=== PATIENT | male | born 2000 | race Two or more races ===

== ENCOUNTER 2025-01-22 06:39 | Emergency (ER) | payer MEDICAID, SELFPAY ==
[2025-01-22 06:44] VITALS: BMI 33.6
[2025-01-22 06:54] VITALS: BP 127/84; PULSE 92; RESP 16; TEMP 36.7; O2SAT 98
--- NOTE | 2025-01-22 07:03 | EDNOTE_ITS ---
<Statement entered by Almaz Jimenez MD - 01/24/25 06:16> As co-signing physician, I was present and available for consult prn. I concur with the plan and care as documented by the midlevel provider. ED Headache RME/HPI General Chief Complaint: Headache Stated Complaint: HEADACHE Time Seen by Provider: 01/22/25 06:43 Source: patient Arrival date/time: 01/22/25 06:39 24-year-old male with no known medical history presents to the emergency room with a chief complaint of a headache and chest pain x 2 days Mode of arrival: ambulatory Limitations: no limitations Related Data Allergies Allergy/AdvReac Type Severity Reaction Status Date / Time NKA* Allergy Uncoded 06/14/15 16:47 Review of Systems Review of Systems Systems Reviewed: All systems reviewed, normal except as documented Constitutional Constitutional: Reports system reviewed and no additional complaints, except as documented, Denies fatigue, Denies fever(s), Reports headache(s) and Denies weakness Eyes Eyes: Reports system reviewed and no additional complaints, except as documented, Denies blurry vision and Denies change in vision ENT Ears, Nose, Mouth, and Throat: Reports system reviewed and no additional complaints, except as documented, Denies otalgia, Reports headache(s), Denies nasal congestion, Denies throat swelling and Denies vertigo Cardiovascular Cardiovascular: Reports system reviewed and no additional complaints, except as documented, Reports chest pain, Denies dyspnea and Denies dyspnea on exertion Respiratory Respiratory: Reports system reviewed and no additional complaints, except as documented, Denies chest congestion, Denies cough, Denies dyspnea, Denies dyspnea on exertion and Denies wheezing Gastrointestinal Gastrointestinal: Reports system reviewed and no additional complaints, except as documented, Denies abdominal pain, Denies cramping, Denies nausea and Denies vomiting Genitourinary Genitourinary: Reports system reviewed and no additional complaints, except as documented, Denies dysuria and Denies hematuria Musculoskeletal Musculoskeletal: Reports system reviewed and no additional complaints, except as documented and Denies back pain Integumentary/Breasts Skin/Breast: Reports system reviewed and no additional complaints, except as documented and Denies wounds Neurologic Neurologic: Reports system reviewed and no additional complaints, except as documented, Denies confusion, Reports headache(s), Denies lack of coordination, Denies vertigo and Denies weakness Psychiatric Psychiatric: Reports system reviewed and no additional complaints, except as documented, Denies anxiety, Denies confusion, Denies depression, Denies paranoia, Denies suicidal ideation and Denies tactile hallucinations Endocrine Endocrine: Reports system reviewed and no additional complaints, except as documented and Denies fatigue Hematologic/Lymphatic Hematologic/Lymphatic: Reports system reviewed and no additional complaints, except as documented and Denies lymphadenopathy Allergic/Immunologic Allergic/Immunologic: Reports system reviewed and no additional complaints, except as documented, Denies throat swelling, Denies urticaria and Denies wheezing Past Medical History Social History SMOKING STATUS: Never smoker ED Exam General Limitations: Present no limitations General appearance: Present alert and in no apparent distress Head Head exam: Present atraumatic Eye Eye exam: Present normal appearance, PERRL and EOMI ENT ENT exam: Present normal exam, normal oropharynx and mucous membranes moist Neck Neck exam: Present normal inspection, full ROM and trachea midline Chest Chest inspection: Present normal inspection and symmetric chest wall rise Respiratory Respiratory exam: Present normal lung sounds bilaterally; Absent respiratory distress, wheezes, stridor, accessory muscle use or prolonged expiratory phase Cardiovascular Cardiovascular exam: Present regular rate, normal rhythm and normal heart sounds; Absent bradycardia, tachycardia or irregular rhythm Abdominal Exam Abdominal exam: Present soft and normal bowel sounds Extremities Exam Extremities exam: Present normal inspection and full ROM Back Exam Back exam: Present normal inspection and full ROM Neurological Exam Neurological exam: Present alert, oriented X3 and CN II-XII intact Psychiatric Psychiatric exam: Present normal affect and normal mood Skin Skin exam: Present warm, dry, intact and normal color Course Quality Measures none Orders Category Date Time Status EKG (ED ONLY) *Do not use* NOW Care 01/22/25 07:03 Completed EKG (ED Only) Stat Exams 01/22/25 07:03 Draft B-Type Natriuretic Peptide Stat Lab 01/22/25 07:20 Completed CBC Stat Lab 01/22/25 07:20 Completed Comprehensive Metabolic Panel Stat Lab 01/22/25 07:20 Completed Troponin I Stat Lab 01/22/25 07:20 Completed Vital Signs Vital signs: Vital Signs Temperature 98.0 F 01/22/25 06:54 Pulse Rate 92 01/22/25 06:54 Respiratory Rate 16 01/22/25 06:54 Blood Pressure 127/84 01/22/25 06:54 Pulse Oximetry (%) 98 01/22/25 06:54 Oxygen Delivery Method Room Air 01/22/25 06:54 O2 saturation 98% within normal limits Procedures -ED EKG Interpretation #1: Date of EK01/22/25 Rate: 77 Interpretation: Reviewed by me EKG Impression: Normal sinus rhythm Headache MDM Narrative MDM Narrative:: 24-year-old male with no known medical history presents to the emergency room with a chief complaint of a headache and chest pain x 2 days. Patient states his headache began yesterday afternoon but today it is significantly better. Patient also states yesterday his blood pressure was really elevated. Patient came asking for referral to a otolaryngology physician for his blood pressure. Patient also states he was having chest pain yesterday afternoon, it is still hurting him today but not as bad as yesterday. Patient is hemodynamically stable and in no apparent distress. Physical examination shows clear bilateral lung sounds. Patient has a strong regular rhythm S1 and S2 noted no murmurs. CBC CMP were negative for any acute findings. Troponin was negative. EKG was within normal limits with no ST deviation. Patient was discharged and educated to follow-up with primary care provider in the next 24 to 48 hours and return to the emergency room for any evidence of worsening signs or symptoms Patient data External records reviewed:: [facility] Clinical information provided by:: parent Social determinants that could affect healthcare access:: none Patient has the following chronic illnesses:: No chronic illness How is presenting disease/condition affected by chronic disease/condition?: no chronic disease Evaluation data The following diagnostics were reviewed and interpreted by me:: lab results and radiology exam(s) Lab and/or radiology exams considered but not ordered:: Labs radiology exams considered and ordered Interpretation Summary: N/A Medications / Prescriptions Medications or Prescriptions considered but not ordered:: No medication given Medication administrations:: No medication given Consultations Consultation(s) initiated? (list below): No Diagnosis Differential diagnosis headache: headache and other (Costochondritis/STEMI/chest pain) Most likely diagnosis given after review of the tests above:: Chest pain Admission Indicated Admission indicated?: not indicated Admission Request Was there a request for admission?: No Disposition Plan Disposition Plan: Discharge Discharge Attestation Discharge Attestation: The patient and all family members were given an opportunity to ask questions and understood the discharge instructions. Discharge instructions specifically effects, indications for sooner follow up or return to the emergency department, and the expected course of current diagnosis. Patient condition: Stable Discharge Plan Plan Patient Disposition: HOME (Self Care) Discharge Disposition comment: Stable Problem List Clinical Impression: Chest pain Patient/Caregiver Discharge Instructions Education Materials: ED Chest Pain, Noncardiac Additional Instructions: Please follow-up with your primary care provider in the next 24 to 48 hours Your cardiac examination was negative for any acute findings. For any evidence of worsening signs or symptoms return to the emergency room immediately Print Language: Japanese Stand Alone Forms: Kristi Award Info., Work/School Release, Patient Portal Info Letter PA/REMOTE CONTROL ASSEMBLER Supervising Physician PA/REMOTE CONTROL ASSEMBLER Supervising Physician: Dr. JIMENEZ
--- NOTE | 2025-01-22 07:03 | EKG_ITS ---
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
[2025-01-22 07:34] LABS: Basophils % (Auto) 0 % (0-2.5); Eosinophils # (Auto) 0.1 Thou/mm3 (0.0-0.5); Eosinophils % (Auto) 1 % (0-10); Hematocrit 39.3 % (41.0-53.0); Hemoglobin 13.6 g/dL (13.5-16.0); Immature Granulocytes % (Auto) 0 % (0-0); Immature Granulocytes Auto 0.01 Thou/mm3 (0.00-0.00); Lymphocytes # (Auto) 1.8 Thou/mm3 (1.0-4.8); Lymphocytes % (Auto) 23 % (10-50); Mean Corpuscular HGB Conc 34.6 g/dl (31.0-37.0); Mean Corpuscular Hemoglobin 30.4 pg (25.0-35.0); Mean Corpuscular Volume 88 fL (80-100); Monocytes # (Auto) 0.6 Thou/mm3 (0.0-0.8); Monocytes % (Auto) 8 % (0-12); Neutrophils # (Auto) 5.4 Thou/mm3 (1.8-7.7); Neutrophils % (Auto) 69 % (37-80); Nucleated Red Blood Cell % 0 /100 WBC (0); Platelet Count 245 Thou/mm3 (140-440); RDW Standard Deviation 40.8 fL (35.1-43.9); Red Blood Count 4.47 Miln/mm3 (4.50-5.90); White Blood Count 7.9 Thou/mm3 (3.8-10.6)
[2025-01-22 07:47] LABS: Alanine Aminotransferase 15 U/L (10-49); Albumin, Serum 4.7 gm/dL (3.5-5.0); Alkaline Phosphatase 58 U/L (46-116); Anion Gap 6 (7-16); Aspartate Amino Transferase 31 U/L (0-34); B-Type Natriuretic Peptide < 20 pg/mL (0-100); BUN/Creatinine Ratio 13 Ratio (12-20); Bilirubin,Total 0.8 mg/dL (0.3-1.2); Blood Urea Nitrogen 13 mg/dL (9-23); Calcium 8.9 mg/dL (8.3-10.6); Calcium (Corrected) 8.9 mg/dL (8.5-10.1); Carbon Dioxide 26.1 mMol/L (20.0-31.0); Chloride 108 mMol/L (98-107); Globulin 2.4 gm/dL (2.3-3.5); Glucose 95 mg/dL (74-106); Osmolality,Calculated 279 (275-295); Potassium 3.9 mMol/L (3.4-5.1); Sodium 140 mMol/L (136-145); Total Protein 7.1 gm/dL (5.7-8.2); Troponin I < 0.020 ng/mL (0.0-0.045); eGFR > 60 See Note
== END 2025-01-22 08:22 | disposition home or self-care (01) ==
PROVIDERS: Nurse Practitioner Family; Emergency Provider Emergency Medicine; PCP Family Medicine
DX: R07.9 Chest pain, unspecified (principal); R51.9 Headache, unspecified
CPT/HCPCS: 36415; 80053; 83880; 84484; 85025; 93005; 99283

== ENCOUNTER 2025-04-07 03:38 | Emergency (ER) | payer MEDICAID, SELFPAY ==
[2025-04-07 03:39] VITALS: BMI 33.2
[2025-04-07 03:42] VITALS: BP 150/105; PULSE 118; RESP 18; TEMP 36.8; O2SAT 98
--- NOTE | 2025-04-07 03:50 | PD.EDADULT ---
ED General RME/HPI General Chief complaint: Wound/Laceration Stated complaint: LAC TO RIGHT HAND Time Seen by Provider: 04/07/25 03:45 Arrival date/time: 04/07/25 03:38 RME / HPI RME / HPI narrative: 24-year-old male with no past medical history comes to the emergency room with complaints of laceration on his right hand. Patient states that he was at the liquor store buying some alcohol and when he walked out he tripped on the side curve and fell on some pieces of broken glass and 1 piece of glass became embedded into his dorsal aspect of the right hand. He mentioned that the piece of glass when he took it out blood started coming out and he wrapped his hand on his T-shirt. He afterwards went home and stated that his mother and his brother brought him to the ED. Patient is not having any numbness, he is able to move all his digits and does not have any loss of sensation at this time. Denies any chest pain, shortness of breath, nausea, vomiting, abdominal pain, changes in bowel movements. Otherwise no other complaints at this time. Admits smoking marijuana, admits alcohol, denies any other illicit drugs. Related Data Previous Rx's ?Medication ?Instructions ?Recorded bacitracin zinc 500 unit/gram 1 applic topical TID #1,022.4 grams 04/07/25 topical ointment cephalexin 500 mg capsule 500 mg PO TID 7 days #21 caps 04/07/25 Allergies Allergy/AdvReac Type Severity Reaction Status Date / Time NKA* Allergy Uncoded 06/14/15 16:47 Review of Systems Review of Systems Systems Reviewed: All systems reviewed, normal except as documented Past Medical History Past Medical History Comments PMH COMMENT: PMH: None Admits smoking marijuana, admits drinking, denies any other illicit drug Allergies: NKDA ED Exam Narrative Physical exam: Gen: A&O X 3, NAD HEENT: NCAT, EOMI, Pupils reactive SHAYNE, not icteric. External ears normal. No rhinorrhea. Moist mucous membranes. Neck: Supple, full range of motion, no observable masses, No meningeal sign. Lungs: No Respiratory distress, clear bilateral. CV: RRR, no murmurs. Abdomen: Soft, nondistended, No rebound tenderness. MSK: 3 cm laceration at Right hand with active arterial bleed both dorsal aspect in the webspace of the index finger and thumb, able to move all digits of the right hand and no loss of sensation no joint swelling, no redness, peripheral pulses presents, lumbar with no edema. Skin: No rashes, petechiae, lesions. Neuro: No focal neurological deficits appreciated, sensory and motor intact. Psych: Cooperative, appropriate mood and effect. Course Course Course Narrative: Hand Laceration repair note THe 3 cm dorsal right hand proximal thumb webspace laceration was prepped and draped usual fashion after a blood pressure cuff was placed on the involved extremity and insufflated to 180 mmHg. The wound was chet irrigated with normal saline under pressure without evidence of foreign body or deep structure involvement. There was a superficial arterial bleeder controlled with oversewing utilizing 4-0 Prolene. The remainder the wound was closed using interrupted horizontal mattress sutures. A compressive dressing was added after antibiotics were placed. Patient tolerated well with no complications. Quality Measures none Orders Category Date Time Status IV [Insert IV] STAT Care 04/07/25 03:43 Active XR hand RT 2V Stat Exams 04/07/25 04:47 Ordered Lidocaine 1% W/Epi 1:100K 20Ml [Xylocaine 1% w/Epi 1: Med 04/07/25 03:41 Discontinued 100K 20 ml] 20 ml INFL X1 ONE Sodium Chloride 0.9% 1000 ml [Ns] 1,000 ml Med 04/07/25 03:41 Discontinued IV 999 mls/hr Tetanus, Diphtheria Toxoids/Pf [Tenivac-Adult] Med 04/07/25 03:41 Discontinued 0.5 ml IMI .ONCE ONE ceFAZolin/D5W 1 GM IVPB [Ancef Ivpb] Med 04/07/25 03:42 Discontinued 1 gm in 50 ml IV X1 Vital Signs Vital signs: Vital Signs Temperature 98.2 F 04/07/25 03:42 Pulse Rate 118 H 04/07/25 03:42 Respiratory Rate 18 04/07/25 03:42 Blood Pressure 150/105 H 04/07/25 03:42 Pulse Oximetry (%) 98 04/07/25 03:42 Oxygen Delivery Method Room Air 04/07/25 03:42 PROCEDURES: Laceration The right hand laceration was prepped and draped in usual fashion. A blood pressure cuff was insufflated draped in usual fashion. A blood pressure c: Size (cm): 3 Description: linear Depth: simple, single layer Local Anesthetic: lidocaine 1% and with epi Pre-repair: wound explored, irrigated extensively and deep structures intact Skin layer closed with: nylon Suture size (cm): 4-0 Number of sutures: 4 Technique: simple, interrupted Technique: simple, interrupted Discharge Plan Plan Patient Disposition: HOME (Self Care) Prescriptions/Referrals Prescriptions/Med Rec: New cephalexin 500 mg capsule 500 mg PO TID 7 Days Qty: 21 0RF bacitracin zinc 500 unit/gram ointment 1 applic topical TID Qty: 1022.4 0RF Referrals: Temporary Provider,ED [Physician] - In 1 week Problem List Clinical Impression: Laceration, Laceration of hand, right Patient/Caregiver Discharge Instructions Other Activity Instructions:: Follow-up primary care physician within 3 days to evaluate sutures and then afterwards at they 7 to evaluate sutures as well and keep sutures for 14 days prior to removal. Keep wound dressing for the next 48 hours. After 48 hours clean wound with water and soap. You have been prescribed cephalexin 500 mg 3 times daily for 7 days and bacitracin topical ointment 3 times daily for the next 7 days. Come back to the ED if worsening pain, numbness, worsening swelling, or discoloration. Education Materials: ED Laceration Hand with ... Print Language: Turkish Stand Alone Forms: Kristi Award Info., Patient Portal Info Letter MDM Narrative MDM hospital course: Patient was seen and assessed by myself upon arrival. Ordered tetanus, 1 L IV fluids, Ancef 1 g, and lidocaine. Wound was sutured with 5 sutures and 2 sutures to the blood vessel. No more bleeding was observed afterwards. Patient tolerated procedure well. Ordered hand x-ray to rule out any foreign bodies. X-ray of the hand interpreted by ED physician Dr. Byers did not show any acute fractures or foreign bodies. Patient will be discharged with instructions to follow-up outpatient with his primary care physician and to take Keflex. Case disclosed with Attending Dr. Zeeshan Louise PGY2 Disclaimer: Even though this this note was dictated by speech recognition and even though it was carefully revised there may still be minor errors in veterinary physiologist due to voice recognition software. Medication Administration(s) Medication Administration History Discontinued Medications Sodium Chloride (Ns) 1,000 mls @ 999 mls/hr IV .Q1H1M ONE Stop: 04/07/25 04:41 Last Infusion: 04/07/25 05:05 Dose: Infused Documented By: Admin: 04/07/25 03:56 Dose: 999 mls/hr Documented By: PHILLIP Cefazolin Sodium/Dextrose (Ancef Ivpb) 1 gm in 50 mls @ 100 mls/hr IV X1 ONE Stop: 04/07/25 04:11 Last Infusion: 04/07/25 04:47 Dose: Infused Documented By: Admin: 04/07/25 03:57 Dose: 100 mls/hr Documented By: PHILLIP Lidocaine/Epinephrine (Lidocaine 1% W/Epi 1:100k 20 Ml Vial) 20 ml INFL X1 ONE Stop: 04/07/25 03:42 Last Admin: 04/07/25 04:03 Dose: 20 ml Documented By: PHILLIP Tetanus/Diphtheria Toxoids (Tetanus,Diphtheria Toxoids/Pf (Adult) 0.5 Ml Syringe) 0.5 ml IMi .ONCE ONE Stop: 04/07/25 03:42 Last Admin: 04/07/25 03:57 Dose: 0.5 ml Documented By: PHILLIP
[2025-04-07] MEDS: SODIUM CHLORIDE 0.9% 1000 ML 1,000 ML 999 ML IV (03:56)
[2025-04-07] MEDS: TETANUS,DIPHTHERIA TOXOIDS/PF (ADULT) 0.5 ML SYRINGE IMi (03:57)
[2025-04-07] MEDS: ceFAZolin/D5W 1 GM IVPB 1 GM/50 ML BAG IV (03:57)
[2025-04-07] MEDS: LIDOCAINE 1% W/EPI 1:100K 20 ML VIAL INFL (04:03)
[2025-04-07 04:05] VITALS: BP 132/97; PULSE 104; RESP 20; O2SAT 99
--- NOTE | 2025-04-07 04:47 | XR_ITS ---
Examination: Right hand 2 views Technique one AP lateral right hand 2 views Date and time: April 07, 2025, 0456 hours INDICATIONS: Patient fell today with laceration to the hand, hand pain. FINDINGS: Old fracture deformity distal fifth metacarpal The fingers are not spread on lateral view Soft tissue vascular calcification No opaque foreign body IMPRESSION: Limited study No opaque foreign body
[2025-04-07 05:06] VITALS: PULSE 107; RESP 20; O2SAT 98
== END 2025-04-07 05:34 | disposition home or self-care (01) ==
PROVIDERS: Emergency Provider Emergency Medicine
DX: S61.411A Laceration without foreign body of right hand, initial encounter (principal); F12.90 Cannabis use, unspecified, uncomplicated; Z23 Encounter for immunization; W01.110A Fall on same level from slipping, tripping and stumbling with subsequent striking against sharp glass, initial encounter; Y93.01 Activity, walking, marching and hiking; Y92.512 Supermarket, store or market as the place of occurrence of the external cause
CPT/HCPCS: 12002; 73120; 90471; 90714; 96365; 99283; J0689; J3490; J7030